=== PATIENT | female | born 1970 | race Caucasian/White ===

== ENCOUNTER 2017-03-30 02:24 | Inpatient (IN) | payer OTHER ==
[~2017-03-30] VITALS: Ht 167.6 cm; Wt 80.7 kg
--- NOTE | 2017-03-30 02:48 | NUR ---
MSE COMPLETED BY DR SIMMONS
[2017-03-30 02:55] LABS: BASOPHIL % 0.4 % (0-2); PLATELET COUNT 164 x10^3mcL (130-400); RED CELL DISTRIBUTION WIDTH 13.8 % (11.5-14.5)
[2017-03-30 03:12] LABS: CALCIUM 8.7 mg/dL (8.5-10.1); CARBON DIOXIDE 29.8 mmol/L (21-32); CHLORIDE SERUM 108 mmol/L (98-107); CREATININE SERUM 0.9 mg/dL (0.6-1.0); GFR1 > 60 mL/min; GLUCOSE SERUM 111 mg/dL (74-106); SODIUM SERUM 144 mmol/L (136-145)
[2017-03-30 03:17] LABS: ALBUMIN 3.3 g/dL (3.4-5.0); ALKALINE PHOSPHATASE 67 U/L (46-116); ALT/SGPT 20 U/L (14-59); AMYLASE 48 U/L (25-115); AST/SGOT 15 U/L (15-37); BILIRUBIN TOTAL 0.35 mg/dL (0.20-1.00); LIPASE 131 IU/L (73-393); TOTAL PROTEIN, SERUM 6.8 g/dL (6.4-8.2)
--- NOTE | 2017-03-30 03:18 | NUR ---
ULTRASOUND AT BEDSIDE
--- NOTE | 2017-03-30 03:18 | NUR ---
PT MEDICATED PER MD ORDERS; PLEASE SEE EMAR. PT AWAKE AND ALERT, RESP EVEN AND UNLABORED. PT PLACED ON FULL MONITORS. PTS AT BEDSIDE, CALL GUPTA WITHIN REACH. NO DISTRESS NOTED
[2017-03-30 04:01] LABS: UA SPECIFIC GRAVITY >=1.030 (1.005-1.035); microscopic required? YES; urine erythrocyte 2+ (NEGATIVE)
--- NOTE | 2017-03-30 04:17 | NUR ---
PT LAYING IN GURNEY WITH EYES CLOSED, RESP EVEN AND UNLABORED. NO DISTRESS NOTED
--- NOTE | 2017-03-30 05:11 | NUR ---
DR SIMMONS AT BEDSIDE DISCUSSING PLAN OF CARE WITH PT
--- NOTE | 2017-03-30 05:39 | NUR ---
PT MEDICATED PER MD ORDERS; PLEASE SEE EMAR. PT AWAKE AND ALERT, RESP EVEN AND UNLABORED. PT REMIANS ON FULL MONITORS WITH CALL GUPTA IN REACH, NO DISTRESS NOTED
--- NOTE | 2017-03-30 05:53 | NUR ---
REPORT CALLED TO EMILIANA MACIAS TO ASSUME CARE OF PT
[2017-03-30 06:28] VITALS: BP 106/69
--- NOTE | 2017-03-30 06:38 | NUR ---
REC'D PT FROM ER. PT ABLE TO AMBULATE. AAOX4. LAYING IN BED COMFORTABLY. PT GIVEN ZOFRAN FOR NAUSEA. DENIES PAIN. PULSES ARE EVEN AND PALPABLE. LUNG SOUNDS ARE CTA, NO SOB. BREATH SOUNDS ARE EVEN AND UNLABORED. NO EDEMA NOTED. IV INTACT AND PATENT, INFUSING WELL. BED IN LOWEST POSITION. CALL LIGHT WITHIN REACH. WILL CONTINUE TO MONITOR AND ENDORSE ALL CONTINUITY CARE TO AM NURSE.
[2017-03-30 06:44] LABS: MAGNESIUM 2.1 mg/dL (1.8-2.4); PHOSPHOROUS 4.3 mg/dL (2.5-4.9)
[2017-03-30 07:08] LABS: FREE T4 0.96 ng/dL (0.76-1.46); FREE THYROXINE INDEX 2.1 ug/dL (1.4-4.5); T4(THYROXINE) 6.1 ug/dL (4.7-13.3)
--- NOTE | 2017-03-30 07:22 | NUR ---
ENDORSE ALL CONTINUITY CARE TO [facility]CDERM[facility].
[2017-03-30 07:54] LABS: AMPHETAMINE QUAL UR NONE DETECTED (NEG <=1000)
--- NOTE | 2017-03-30 08:00 | NUR ---
PT AWAKE ALERT AND ORIENTED AT 4, ABLE TO MAKE NEEDS KNOWN,. TELE 30 SB. PULSES EQUAL BILATERAL, NO EDEMA NOTED. BOWEL TONES ACTIVE IN ALL 4 QUADRANTS. MILD DISCOMFORT NOTED TO ABD. BRP. SKIN IS CDI. PT REPORTS HORTON WILL MEDICATE ACCORDING TO MAR. IV INFUSING. CALL LIGHT IN REACH AT BEDSIDE. WILL CONTINUE TO MONITOR.
[2017-03-30 09:21] LABS: T3 TOTAL 1.21 ng/mL
[2017-03-30 09:27] VITALS: BP 94/57
--- NOTE | 2017-03-30 10:40 | NUR ---
PT RESTING IN BED NO SIGNS OF DISTRESS CALL LIGHT IN [facility] WILL CONTINUE TO MONITOR. AT BEDSIDE.
--- NOTE | 2017-03-30 11:42 | NUR ---
OBTAINED CONSENT FOR PROCEDURE.
--- NOTE | 2017-03-30 12:19 | NUR ---
PT OFF THE FLOOR IN PROCEDURE.
[2017-03-30 12:23] VITALS: BP 116/65
--- NOTE | 2017-03-30 16:00 | NUR ---
DR JABIER GONZALEZ
[2017-03-30 16:41] VITALS: BP 113/70
--- NOTE | 2017-03-30 17:00 | NUR ---
DR JABIER GONZALEZ
--- NOTE | 2017-03-30 17:35 | NUR ---
DR JABIER GONZALEZ
--- NOTE | 2017-03-30 17:36 | NUR ---
PT RESTING IN BED NO SIGNS OF DISTRESS CALL LIGHT IN REACH, PT REPORTS SEVERE PAIN TO ABD.
--- NOTE | 2017-03-30 19:08 | NUR ---
PT STABLE CARE ENDORCED TO [employer]S HELPER NURSE.
--- NOTE | 2017-03-30 19:28 | NUR ---
REC'D PT FROM [facility]. PT IS AAOX4. LAYING IN BED. NO SOB. COMPLAINS OF PAIN 6/10 ON THE PAIN SCALE. PT STATES SHE IS FEELING NAUSEOUS. WILL BE GIVING PAIN MED AND ZOFRAN FOR NAUSEA. WILL CONTINUE TO MONITOR.
[2017-03-30 22:16] VITALS: BP 115/71
[2017-03-30 22:38] VITALS: BP 110/66
--- NOTE | 2017-03-30 22:46 | NUR ---
ATTEMPTED TO TEACH PT INCENTIVE SPIROMETRY AT 2240. PT REFUSED AND CLAIMED TO BE TOO TIRED. PT STATED SHE WOULD TRY IN THE MORNING. NO RESPIRATORY DISTRESS AT THIS TIME. WILL MONITOR.
--- NOTE | 2017-03-31 01:11 | NUR ---
PT STATED PAIN 7/10 ON THE PAIN SCALE. PT GIVEN PAIN MED AND ZOFRAN FOR NAUSEA. ABD DRESSING INTACT, GRETCHEN DRAINAGE DRAINING A SMALL AMOUNT OF SEROSANGUINOUS. BP 11/71 MAP (86), 02 SAT 98%, RR 18, HR 59. WILL CONTINUE TO MONITOR.
[2017-03-31 06:42] VITALS: BP 109/64
[2017-03-31 06:56] LABS: BASOPHIL % 0.4 % (0-2); RED CELL DISTRIBUTION WIDTH 13.8 % (11.5-14.5)
[2017-03-31 07:01] LABS: CALCIUM 8.2 mg/dL (8.5-10.1); CARBON DIOXIDE 27.5 mmol/L (21-32); CHLORIDE SERUM 107 mmol/L (98-107); CREATININE SERUM 0.9 mg/dL (0.6-1.0); GFR1 > 60 mL/min; GLUCOSE SERUM 108 mg/dL (74-106); PHOSPHOROUS 3.6 mg/dL (2.5-4.9); PLATELET COUNT 125 x10^3mcL (130-400); POTASSIUM SERUM 4.8 mmol/L (3.5-5.1); SODIUM SERUM 141 mmol/L (136-145)
--- NOTE | 2017-03-31 07:06 | NUR ---
PT SLEPT THROUGHOUT THE NIGHT. NO SIGNIFICANT CHANGES NOTED. NO SOB. PT STATED PAIN 6/10 ON THE PAIN SCALE. PAIN MED GIVEN. GRETCHEN DRAINAGE DRAINED 25CC. REINSTRUCTED THE PT TO GET UP OUT OF BED TO AMBULATE IN ORDER TO LET OUT GAS. WILL ENDORSE ALL CONTINUITY CARE TO AM NURSE.
--- NOTE | 2017-03-31 07:19 | NUR ---
PT AWAKE ALERT AND ORIENTED X4, ABLE TO MAKE NEEDS KNOWN. NO C/O SOB, LUNGS CTA. BOWEL TONES HYPOACTIVE, NO FLATUS OR BM OVER NIGHT. ABD DRESSING CDI. PULSES EQUAL BILATERAL. NO EDEMA NOTED. IV SITE PATENT AND INFUSING. CALL LIGHT IN REACH WILL CONTINUE TO MONITOR.
--- NOTE | 2017-03-31 07:38 | NUR ---
ENDORSE ALL CARE TO COLLEEN MCDERMOTT.
[2017-03-31 10:06] VITALS: BP 93/63
--- NOTE | 2017-03-31 10:22 | NUR ---
PT RESTING IN BED NO SIGNS OF DISTRESS, CALL LIGHT IN REACH WILL CONTINUE TO MONITOR.
[2017-03-31 16:00] VITALS: BP 106/58
--- NOTE | 2017-03-31 16:31 | NUR ---
PATIENT RESTING IN BED FAMILY AT BEDSIDE, NO SIGN SOF DISTRESS, CALL LIGHT IN REACH WILL CONTINUE TO MONITOR.
--- NOTE | 2017-03-31 18:12 | NUR ---
PT RESTING IN BED, NO SIGNS OF DISTRESS, EVEN UNLABORED RESPIRATIONS. CALL LIGHT IN REACH WILL CONTINUE TO MONITOR.
--- NOTE | 2017-03-31 18:15 | NUR ---
PT RESTING IN BED NO SIGNS OF DISTRESS CALL LIGHT IN REACH WILL CONTINUE TO MONITOR.
[2017-03-31 19:56] VITALS: BP 110/78
--- NOTE | 2017-03-31 19:56 | NUR ---
REC'D PT FROM [facility]. PT IS SITTING UP IN BED. PULSES ARE EVEN AND PALPABLE. LUNG SOUNDS ARE CTA, NO SOB, NO HORTON/D. DENIES PAIN AT THIS TIME. BREATH SOUNDS ARE E/U. ABD SOFT AND ROUND, ACTIVE X4. DRESSING CDI, GRETCHEN DRAINAGE NOTED. NO EDEMA NOTED. IV INTACT AND PATENT, INFUSING WELL. FAMILY AT BEDSIDE. BED IN LOWEST POSITION. CALL LIGHT WITHIN REACH. WILL CONTINUE TO MONITOR.
--- NOTE | 2017-03-31 20:20 | NUR ---
PT HAS 7 MARLEN IN THE ABD. DRESSING CDI, GRETCHEN DRAIN NOTED AND DRAINING. WILL CONTINUE TO MONITOR.
--- NOTE | 2017-03-31 20:20 | NUR ---
PT HAS 7 MARLEN IN THE ABD THAT IS INTACT COVERED WITH A BANDAID. GRETCHEN DRAIN NOTED AND DRAINING. WILL CONTINUE TO MONITOR.
--- NOTE | 2017-04-01 02:05 | NUR ---
PT IS AWAKE AND WATCHING TV. DENIES PAIN AT THIS TIME. ASSISTED PT TO THE RESTROOM. GRETCHEN DRAINAGE INTACT, DRAINED 50CC. WILL CONTINUE TO MONITOR.
--- NOTE | 2017-04-01 05:28 | NUR ---
GRETCHEN DRAIN INTACT, DRAINING 65CC OF SEROSANGUINOUS FLUIDS. WILL CONTINUE TO MONITOR.
[2017-04-01 05:59] VITALS: BP 116/79
[2017-04-01 06:17] LABS: CARBON DIOXIDE 30.8 mmol/L (21-32); CHLORIDE SERUM 108 mmol/L (98-107); CREATININE SERUM 0.9 mg/dL (0.6-1.0); GFR1 > 60 mL/min; GLUCOSE SERUM 97 mg/dL (74-106); MAGNESIUM 1.9 mg/dL (1.8-2.4); PHOSPHOROUS 2.8 mg/dL (2.5-4.9); POTASSIUM SERUM 4.2 mmol/L (3.5-5.1); SODIUM SERUM 142 mmol/L (136-145)
--- NOTE | 2017-04-01 06:39 | NUR ---
PT PERIODICALLY SLEPT THROUGHOUT THE NIGHT. NO SIGNIFICANT CHANGES NOTED. NO DISTRESS NOTED. GRETCHEN DRAIN NOTED AND DRAINING. IV INTACT AND PATENT, INFUSING WELL. WILL CONTINUE TO MONITOR AND ENDORSE ALL CONTINUITY CARE TO AM NURSE.
--- NOTE | 2017-04-01 07:10 | NUR ---
BEDSIDE REPORT RECEIVED FROM [facility] SHIFT NURSE AT THIS TIME. PATIENT ASLEEP, NO SIGNS OF DISTRESS NOTED, BREATHING EVEN AND UNLABORED, WILL CONTINUE TO MONITOR.
[2017-04-01 07:35] VITALS: BP 119/87
[2017-04-01 07:45] LABS: BASOPHIL % 0.4 % (0-2); RED CELL DISTRIBUTION WIDTH 13.6 % (11.5-14.5)
[2017-04-01 07:46] LABS: PLATELET COUNT 110 x10^3mcL (130-400)
--- NOTE | 2017-04-01 07:50 | NUR ---
PATIENT AWAKE, AELRT, SITTING UP AT EDGE OF BED EATING BREAKFAST, STATES SHE TOLERATED DINNER LAST NIGHT VERY WELL. DENIES CHEST PAIN, ON ROOM AIR, SCD'S IN PLACE. STATED DISCOMFORT ONLY TO RIGHT SIDE OF ABDOMEN, DRESSING X3 CDI, SEROSANGUINEOUS DRAINAGE NOTED TO GRETCHEN DRAIN WITH SUCTION IN PLACE. NS INFUSING TO LAC AT 120 ML/HR. CALM AND COOPERATIVE WITH CARE, ALL SAFETY MEASURES IN PLACE, WILL CONTINUE TO MONITOR.
--- NOTE | 2017-04-01 08:05 | NUR ---
ROUNDS MADE AT THIS TIME WITH MD TEAM, CHARGE NURSE NUNO, AND DR BAUER. MD TEAM TO FOLLOW UP WITH SURGEON REGARDING DISCHARGE PLAN. ALL SAFETY MEASURES IN PLACE, WILL CONTINUE TO MONITOR.
--- NOTE | 2017-04-01 10:10 | NUR ---
DR BAER MADE AWARE PATIENT IS REFUSING SUPPOSITORY, PATIENT HAD MILD NAUSEA AFTER BREAKFAST WHICH HAS NOW SUBSIDED.
[2017-04-01] MEDS ORDERED: NOR10T PO (11:03)
[2017-04-01] MEDS ORDERED: COLACE100 MG PO (11:04)
[2017-04-01] MEDS ORDERED: PROTONIX40 MG PO (11:05)
[2017-04-01] MEDS ORDERED: ZOFRAN ODT4 MG SL (13:23)
[2017-04-01 13:40] VITALS: BP 119/87
--- NOTE | 2017-04-01 13:48 | NUR ---
DISCHARGE TEACHING PROVIDED TO PATIENT AND AT THIS TIME. GRETCHEN DRAIN REMOVED WITH 35 ML OF SEROSANGUINEOUS DRAINAGE, IV DC'D. TOLERATED WELL. WILL NOTIFY NURSE AID OF DISCHARGE.
== END 2017-04-01 13:54 | disposition home or self-care (01) | DRG 417 ==
LOC: ED 02:24 → DU 05:29 → MU 05:29 → DU 06:13 → MU 17:57
PROVIDERS: Emergency Medicine; Surgery; ADMIT Family Medicine
PROC: 0FT44ZZ Resection of Gallbladder, Percutaneous Endoscopic Approach (ICD-10-PCS; principal; 2017-03-30 13:15)
DX: K81.0 Acute cholecystitis (principal); E43 Unspecified severe protein-calorie malnutrition; N13.2 Hydronephrosis with renal and ureteral calculous obstruction; E87.8 Other disorders of electrolyte and fluid balance, not elsewhere classified; E03.9 Hypothyroidism, unspecified; D69.6 Thrombocytopenia, unspecified; E83.51 Hypocalcemia; D64.9 Anemia, unspecified; R31.9 Hematuria, unspecified; Z87.442 Personal history of urinary calculi; Z68.28 Body mass index [BMI] 28.0-28.9, adult
CPT/HCPCS: 80307; 83880; 84439; 94150; C9113; G0480; J0696; J1170; J1885; J2060; J2270; J2405; J3010; J3490; J7030; Q0092